=== PATIENT | male | born 1940 | race Caucasian/White ===

== ENCOUNTER → 2018-09-04 | Outpatient (CLI) | payer MEDICARE, BC ==
[~2018-09-04] MED LIST: ATOR40TA59 PO; IOHEXOL 180 MG/ML 10 ML VIAL. ONE; LISI-334 PO; MAGN400C PO; MELO15TA23 PO; methylPREDNISolone ACETATE 40 MG/ML VIAL. ONE; methylPREDNISolone ACETATE 80 MG/ML VIAL. ONE
--- NOTE | 2018-09-05 01:43 | PAIN ---
DATE OF SERVICE: 09/04/2018 INITIAL CONSULTATION FOR PAIN CLINIC CHIEF COMPLAINT: Low back and left lower extremity pain. HISTORY OF PRESENT ILLNESS: The patient is a 77-year-old male who presents with history of pain for about 3 months, not as a result of any specific injury or action he is aware of, but gradually increased in the low back, posterior gluteus, posterior thigh, posterior calf with some numbness and tingling in the toes, all on the left side and the left foot. The patient reports it has been getting worse with time. He has tried some physical therapy, he also done some chiropractic treatments, which is helpful, but not more than about 2 days. The patient reports the pain is throbbing, stabbing, worse when he coughs in the low back and leg intermittent in intensity, but radiating, becoming more severe and more noticeable. The patient rates his disability from 0-10, 10 being the worst at 2 with family and home responsibilities; 3 with social activity; 0 with recreation, occupation, sexual behavior, self-care and life support activities. The patient did have an MRI scan of the lumbar spine showing focal area of soft tissue signal in the left lateral recess at L5-S1 compatible with a focal disk protrusion measuring 7-8 mm in transverse diameter compressing the left S1 nerve root in the left lateral recess, a small left lateral disk protrusion at L3-L4 with moderate left lateral recess stenosis and compression of the left L4 nerve root. The patient reports no loss of motor function, but significant fatigability with the left lower extremity with walking, worse with sitting for prolonged periods, greater than 15-20 minutes, better with sitting or lying down. The patient reports it has been disturbing his sleep so frequently at least 2-3 times at night, does not affect his bowel or bladder control and does affect his ability to walk, but he is not using any assistive devices. The patient has tried Aleve as well as meloxicam, which helps sometimes, but not always. PAST MEDICAL HISTORY: Significant for arthritis, hypertension, hypercholesterolemia, previous TIAs, cataracts. PREVIOUS SURGERY: Include cataract extraction on the left and bilateral knee replacement in 2015 and 2018. CURRENT MEDICATIONS: Include meloxicam, lisinopril and atorvastatin. ALLERGIES: The patient has no known drug allergies. FAMILY HISTORY: Significant for no major medical problems or conditions he is aware of. SOCIAL HISTORY: The patient does not drink any alcohol; does not smoke; does not use any illegal, illicit or recreational drugs or other substances. He is retired, lives locally in [place], [place]. REVIEW OF SYSTEMS: The patient's review of systems is positive for those items mentioned in history of present illness. All systems are reviewed and otherwise negative. It is complete, full and well documented on the patient's chart. PHYSICAL EXAMINATION: VITAL SIGNS: The patient's blood pressure is 147/75, pulse 70, respirations are 18, temperature is 97.2 degrees Fahrenheit, height 5 feet 8 inches and weight is 213 pounds. GENERAL: The patient is awake, alert, oriented, appropriate, very pleasant demeanor. HEENT: Head shows normocephalic, atraumatic. Extraocular movements are intact and symmetrical. Oral cavity: Mucous membranes moist and pink. Dentition is intact. NECK: Shows anterior throat supple without palpable lymphadenopathy noted. Swallow reflux is symmetrical. CHEST: Shows normal on inspection. Breath sounds clear to auscultation bilaterally. HEART: Shows S1, S2 clear. No murmurs auscultated. ABDOMEN: Obese, soft, nontender, nondistended. No palpable organomegaly is noted. No rebound or guarding demonstrated. BACK: Shows spine grossly in the midline. Normal-appearing thoracic kyphosis, cervical lordotic curvature and lumbar lordotic curvature. Lumbar paraspinous muscle shows symmetrical on inspection; on palpation shows some moderate tenderness throughout the middle and lower distribution of paraspinous muscles, but only diffusely without significant radiation and only to a moderate extent. No tenderness over the spinous processes, sacrum or sacroiliac regions. The patient has good rotational motion of lumbar spine, both laterally greater than 10 degrees right and left as well as extension greater than 10 degrees, forward flexion 45 degrees without significant pain reported. EXTREMITIES: Lower extremities show deep tendon reflexes at 1+ patellar and tendo calcaneus tendons are equal. Motor exam is strong with 5/5 dorsiflexion, extension, quadriceps and hamstring flexion. Peripheral pulses are 1+ posterior tibial. No peripheral edema is noted bilaterally. Straight leg raise noted to be mildly positive on the left at about 40-45 degrees with decreased knee flexion, but right side is negative. Gaenslen's and Yobani's maneuvers are negative bilaterally. Lower extremities are warm and dry to touch, equal in color and appearance. Peripheral pulses are 1+ posterior tibia. No peripheral edema is noted bilaterally. SKIN: Warm, dry, good turgor. No edema. No sores, rashes or bruising. IMPRESSION: This is a 77-year-old male with: 1. Approximately 3-month history of increasing pain in the low back, left lower extremity in radicular fashion. 2. MRI scan of lumbar spine as noted. 3. Arthritis. 4. Hypertension. 5. Hypercholesterolemia. 6. History of transient ischemic attack. PLAN: Options were discussed with the patient and the patient's spouse who accompanied him at this visit today including conservative medical management, continued physical therapies, interventional techniques. He would like to pursue interventional techniques. We discussed a lumbar epidural steroid injection using description as well as anatomical models to describe the procedure. Risks were then discussed including, but not limited to bleeding, infection, possibility of epidural hematoma, subsequent neurological compromise, dural puncture, headaches, spinal cord and/or nerve damage, side effects of steroid medication and poor results regarding pain control. The patient understands and wished to proceed. The patient will return to clinic in approximately 2 weeks for followup. She was counseled as to return appointment, activity level and side effects to be aware of. DIAGNOSES: 1. Lumbar radiculopathy with lumbar degenerative disk disease. 2. Lumbar herniated disk. PROCEDURE: Lumbar epidural steroid injection, translaminar approach L5-S1 level using C-arm fluoroscopic guidance under sterile prep and drape using local anesthetic. MEDICATION INJECTED: A total of 120 mg Depo-Medrol plus 10 mL of preservative-free normal saline and 2 mL of Isovue for contrast. CONDITION AT DISCHARGE: Stable. The patient tolerated the procedure well, had no complications. STELLA SULTANA MD DR: KEL/meño JOB#: [id number] / [id number] SIDDHARTH Do MD
== END | disposition home or self-care (01) ==
LOC: PNCL 13:47
PROVIDERS: ATTEND Anesthesiology
DX: M51.16 Intervertebral disc disorders with radiculopathy, lumbar region (principal); I10 Essential (primary) hypertension; E78.00 Pure hypercholesterolemia, unspecified; Z86.73 Personal history of transient ischemic attack (TIA), and cerebral infarction without residual deficits; M19.90 Unspecified osteoarthritis, unspecified site; Z96.653 Presence of artificial knee joint, bilateral; Z98.42 Cataract extraction status, left eye; Z96.1 Presence of intraocular lens; Z79.899 Other long term (current) drug therapy
CPT/HCPCS: 62323; J1030; J1040; Q9965

== ENCOUNTER → 2018-09-25 | Outpatient (CLI) | payer MEDICARE, BC ==
--- NOTE | 2018-09-25 12:16 | PAIN ---
DATE OF SERVICE: 09/25/2018 PROGRESS NOTE FOR PAIN CLINIC DIAGNOSES: Lumbar radiculopathy with lumbar degenerative disk disease and lumbar herniated disk. HISTORY OF PRESENT ILLNESS: The patient is a 77-year-old male who returns for followup status post lumbar epidural steroid injection x 1. The patient reports he did very well with near 100% improvement for the first 3 weeks, now pain is returning but not to baseline in the low back, left lower extremity, posterior gluteus, posterior thigh, posterior calf and worse with walking, standing, change in positions but much better with increasing his activity with greater distance walking, greater activity at home, doing household activities and also traveling with much greater ease and comfort, sleeping better at night and does not awaken him from sleep. The patient reports he sleeps about 6-7 hours a night without difficulty from the pain. The patient rates his pain a 1 on a scale of 10 at its average, worst and at least and is a 1 today. The patient reports it is aching pain in the low back, left leg with some shooting pain as well on the left side. The patient reports no new motor or sensory deficits and no new bowel or bladder incontinence or other complaints. PHYSICAL EXAMINATION: VITAL SIGNS: The patient's blood pressure is 125/64, pulse 67, respirations 18 and temperature 97.4 degrees Fahrenheit. Height is 5 feet 8 inches and weight is 211 pounds. GENERAL: The patient is awake, alert, oriented, appropriate and very pleasant demeanor. HEENT: Head shows normocephalic and atraumatic. Extraocular movements are intact and symmetrical. Oral cavity: Mucous membranes moist and pink. Dentition is intact. NECK: Shows anterior throat supple without palpable lymphadenopathy noted. Swallow reflex symmetrical. CHEST: Shows normal on inspection. Breath sounds are clear to auscultation bilaterally. HEART: Shows S1 and S2 clear. No murmurs auscultated. ABDOMEN: Soft, nontender and nondistended. No palpable organomegaly is noted. No rebound or guarding demonstrated. BACK: Shows spine grossly in the midline. Normal appearing thoracic kyphosis and lumbar lordotic curvature. Lumbar paraspinous muscle shows symmetrical on inspection and palpation shows some moderate tenderness but only diffusely without significant radiation. The patient has good rotational motion of the lumbar spine, both laterally as well as extension and flexion without significant difficulty. EXTREMITIES: The patient's lower extremities show deep tendon reflexes at 1+ in the patellar and tendo-calcaneus tendons. Motor exam is strong with dorsiflexion, extension, quadriceps and hamstring flexion and symmetrical. Peripheral pulses are 1+ posterior tibial. No peripheral edema is noted bilaterally. Options were discussed with the patient. The patient's old chart was reviewed as well as his current medication regimen updated. Current review of systems updated today as well. We will proceed with a second in the series of lumbar epidural steroid injection today with fluoroscopic guidance. Risks were again discussed including, but not limited to bleeding, infection, possibility of epidural hematoma, subsequent neurological compromise, dural puncture, headaches, spinal cord and/or nerve damage, side effects of steroid medication and poor results regarding pain control. The patient understands and wished to proceed. The patient will return to the clinic in approximately 2 weeks for followup, was counseled as to return appointment, activity level and side effects to be aware of. DIAGNOSES: Lumbar radiculopathy with lumbar degenerative disk disease and lumbar herniated disk. PROCEDURE: Lumbar epidural steroid injection, translaminar approach at the L5-S1 level using C-arm fluoroscopic guidance under sterile prep and drape using local anesthetic. MEDICATION INJECTED: A total of 120 mg Depo-Medrol plus 10 mL of preservative-free normal saline and 2 mL of Isovue for contrast. CONDITION AT DISCHARGE: Stable. The patient tolerated the procedure well and had no complications. STELLA SULTANA MD DR: KEL/meño JOB#: [id number] / [id number]
== END | disposition home or self-care (01) ==
LOC: PNCL 08:06
PROVIDERS: ATTEND Anesthesiology
DX: M51.16 Intervertebral disc disorders with radiculopathy, lumbar region (principal); Z98.890 Other specified postprocedural states
CPT/HCPCS: 62323; J1030; J1040; Q9965

== ENCOUNTER → 2018-10-24 | Outpatient (CLI) | payer MEDICARE, BC ==
--- NOTE | 2018-10-24 21:00 | PAIN ---
DATE OF SERVICE: 10/24/2018 PROGRESS NOTE FOR PAIN CLINIC: DIAGNOSES: Lumbar radiculopathy with lumbar degenerative disk disease, lumbar herniated disk. HISTORY OF PRESENT ILLNESS: The patient is a 78-year-old male who returns for followup status post lumbar epidural steroid injection x 2. The patient reports initially did well for the first 3 weeks then the pain only reduced by about 20%. Prior to that, it was about 80-90% better, but the patient reports pain is returning in the low back, left leg, left posterior gluteus, posterior thigh, radiating to the posterior calf. The patient reports it is a dull aching pain radiating and shooting. The patient reports his pain on average is a 2 on a scale of 10 at its worst, least and average and is a 2 today, but it is becoming more difficult, increasing with some significant fatigability and difficulty walking with his left leg secondary to the pain and some weakness as well. The patient reports no new motor or sensory deficits, no new bowel or bladder incontinence, still significant pain with walking, standing, change in positions. Initially, he was walking greater distances, doing activities at home, traveling with greater ease and comfort, still sleeping better at night, is better with being off of his feet, but worse with standing and walking. The patient reports no new motor or sensory deficits, no bowel or bladder incontinence. PHYSICAL EXAMINATION: VITAL SIGNS: The patient's blood pressure is 122/32, pulse 73, respirations 18, temperature 97.6 degrees Fahrenheit, height is 5 feet 8 inches, weight is 212 pounds. GENERAL: The patient is awake, alert, oriented, appropriate, very pleasant demeanor. HEENT: Head shows normocephalic, atraumatic. Extraocular movements are intact and symmetrical. Oral cavity, mucous membranes are moist and pink. Dentition is intact. NECK: Shows anterior throat supple without palpable lymphadenopathy noted. Swallow reflex symmetrical. CHEST: Shows normal with inspection. Breath sounds clear to auscultation bilaterally. HEART: Shows S1, S2 clear. No murmurs auscultated. ABDOMEN: Soft, nontender, nondistended. No palpable organomegaly is noted. No rebound or guarding demonstrated. BACK: Shows spine grossly in the midline. Normal appearing thoracic kyphosis and lumbar lordotic curvature slightly flattened. Lumbar paraspinous muscle shows symmetrical on inspection, on palpation there is moderate tenderness bilaterally, but only diffusely without radiation. The patient has good rotational motion of lumbar spine, both laterally as well as extension and flexion without difficulty. EXTREMITIES: The patient's lower extremities show deep tendon reflexes at 1+ in the patellar and tendo calcaneus tendons. Motor exam is strong with 5/5 dorsiflexion, extension, quadriceps and hamstring flexion and symmetrical. Peripheral pulses are 1+ posterior tibia. No peripheral edema is noted bilaterally. Options were discussed with the patient. The patient's old chart was reviewed as his current medication regimen updated. Current review of systems updated today as well. We will proceed with a third in the series of lumbar epidural steroid injection today with fluoroscopic guidance. Risks were again discussed including, but not limited to bleeding, infection, possibility of epidural hematoma, subsequent neurological compromise, dural puncture headache, spinal cord and/or nerve damage, side effects of steroid medication and poor results regarding pain control. The patient understands and wished to proceed. The patient will return to clinic in approximately 2 weeks for followup, was counseled as to return appointment, activity level and side effects to be aware of. DIAGNOSES: Lumbar radiculopathy with lumbar degenerative disk disease, lumbar herniated disk. PROCEDURE: Lumbar epidural steroid injection, translaminar approach L5-S1 level using C-arm fluoroscopic guidance under sterile prep and drape using local anesthetic. MEDICATION INJECTED: A total of 120 mg Depo-Medrol plus 10 mL of preservative-free normal saline and 2 mL of Isovue for contrast. CONDITION AT DISCHARGE: Stable. The patient tolerated the procedure well and had no complications. STELLA SULTANA MD DR: KEL/meño JOB#: [id number] / [id number]
== END | disposition home or self-care (01) ==
LOC: PNCL 07:59
PROVIDERS: ATTEND Anesthesiology
DX: M51.16 Intervertebral disc disorders with radiculopathy, lumbar region (principal)
CPT/HCPCS: 62323; J1030; J1040; Q9965

== ENCOUNTER → 2019-01-13 | Outpatient (CLI) | payer MEDICARE, BC ==
[~2019-01-13] MED LIST changes: +DOCU-109 PO; +HYDR-3164 PO; -IOHEXOL 180 MG/ML 10 ML VIAL. ONE; +NAPR220T70 PO; -methylPREDNISolone ACETATE 40 MG/ML VIAL. ONE; -methylPREDNISolone ACETATE 80 MG/ML VIAL. ONE
[2019-01-13 15:26] LABS: BASO # 0.1 x10^3/uL (0.0-0.2); BASO % 1 % (0-3); EOS # 0.3 x10^3/uL (0.0-0.7); EOS % 4 % (0-3); HEMOGLOBIN 14.2 g/dL (13.0-17.5); LYMPH # 2.4 x10^3/uL (1.0-4.8); LYMPH % 29 % (24-48); MEAN CORPUSCULAR HEMOGLOBIN 32 pg (25-35); MEAN CORPUSCULAR HGB CONC 35 g/dL (31-37); MEAN CORPUSCULAR VOLUME 92 fL (79-100); MONO # 0.8 x10^3/uL (0.0-1.1); MONO % 10 % (0-9); NEUT # 4.8 x10^3uL (1.8-7.7); NEUT % 57 % (31-73); PLATELET COUNT 222 x10^3/uL (140-400); RED BLOOD COUNT 4.45 x10^6/uL (4.30-5.70); RED CELL DISTRIBUTION WIDTH 13.2 % (11.5-14.5); WHITE BLOOD COUNT 8.4 x10^3/uL (4.0-11.0)
--- NOTE | 2019-01-13 15:35 | EKG ---
[facility] [address] [place] [address] Test Date: 2019-01-13 Test Time: 15:20:51 Pat Name: TALHA ROBBINS Department: Room: Gender: M Commercial Sales Manager: : 1940 Requested By: KRISHAN TONY Order Number: [id number] Reading MD: Sekou Johnson MD Measurements Intervals [place] Rate: 71 P: 34 IN: 222 QRS: 28 QRSD: 98 T: 34 QT: 378 QTc: 415 Interpretive Statements SINUS RHYTHM PROLONGED IN INTERVAL POOR R-WAVE PROGRESSION, PROBABLE LEAD PLACEMENT Electronically Signed On 01-14-2019 11:32:10 CDT by Sekou Johnson MD
[2019-01-13 16:03] LABS: ALBUMIN 3.8 g/dL (3.4-5.0); CALCIUM 9.4 mg/dL (8.5-10.1); CREATININE 1.4 mg/dL (0.7-1.3); GFR 48.9; POTASSIUM 4.2 mmol/L (3.5-5.1); TOTAL BILIRUBIN 0.4 mg/dL (0.2-1.0); TOTAL PROTEIN 7.5 g/dL (6.4-8.2)
== END | disposition home or self-care (01) ==
LOC: SURGPAT 13:15
PROVIDERS: ATTEND Neurological Surgery
DX: Z01.818 Encounter for other preprocedural examination (principal); M51.17 Intervertebral disc disorders with radiculopathy, lumbosacral region; I44.0 Atrioventricular block, first degree
CPT/HCPCS: 36415; 80053; 85025; 87641; 93005

== ENCOUNTER 2019-01-17 08:15 | Day surgery (SDC) | payer MEDICARE, BC ==
--- NOTE | 2019-01-16 23:58 | HP ---
ADMIT DATE: 01/17/2019 Navarro Duran dictating for Dr. Lisandro Tony. HISTORY OF PRESENT ILLNESS: The patient is a pleasant 78-year-old who beginning 6 months ago while stretching developed a sharp, severe left buttock and posterior thigh pain. There is no numbness, tingling or weakness. The problem was significant back and left leg pain, which was disabling. He had epidural steroid injections and his pain currently has resolved. Sitting and standing would increase his pain. It was constant. He was taking meloxicam. PAST MEDICAL HISTORY: Right knee replacement in 2015. Left knee replacement in 2018. FAMILY HISTORY: Hypertension, heart disease. SOCIAL HISTORY: . Rarely exercises. Denies tobacco use. Drinks alcohol 1-2 times per month. Drinks coffee daily. Quit using and chewing tobacco about 5 years ago. ALLERGIES: No known drug allergies. CURRENT MEDICATIONS: Lisinopril, atorvastatin, and meloxicam. REVIEW OF SYSTEMS: A 12-point review of systems was obtained and is noncontributory except for that mentioned above. PHYSICAL EXAMINATION: NEUROSURGERY EXAMINATION: GENERAL APPEARANCE: Alert, pleasant, in no acute distress. HEAD: Normocephalic and atraumatic. SKIN: Warm and dry. MUSCULOSKELETAL: Lumbar paraspinal muscle bulk is normal, restricted range of motion of lumbar spine, [id number] tenderness of the lower lumbar spine with palpation, normal range of motion of the lower extremities bilaterally. EXTREMITIES: No clubbing, cyanosis or edema. NEUROLOGIC: Alert and oriented x 3. Normal recent and remote memory. Strength is 5/5 in bilateral lower extremities. Sensory was intact to light touch in bilateral lower extremities. Reflexes are present and symmetric in the lower extremities bilaterally. Positive straight leg raising on the left, relieved by Lasegue's maneuver. Negative straight leg raising on the right, normal gait. IMAGING: Reviewed. I reviewed a lumbar MRI scan. There are degenerative changes throughout. Pertinently at L5-S1 on the left, there is a focal disk herniation with lateral recess stenosis and compression left S1 nerve root. ASSESSMENT: Intervertebral disk disorders with radiculopathy, lumbosacral region. PLAN: I do feel the problem is a herniated disk on the left at L5-S1. For a small period of time, the pain had resolved; however, it has come back at this time and he would like to proceed with surgery. At this point, my recommendation is lumbar microsurgery at this level to remove disk fragment and see if this will help him. He understands. He would like to go ahead. We will make the arrangements. LISANDRO TONY MD DR: MICHAEL/meño JOB#: [id number] / [id number]
[~2019-01-17] VITALS: Ht 174 cm; Wt 98.4 kg
[~2019-01-17 08:15] MED LIST changes: +BACITRACIN 50,000 UNIT in IV NORMAL SALINE 1000ML BAG 1,000 ML IRR ONE; +BUPIVAC MPF-EPI 0.5%-1:200000 30 ML VIAL. ONE; -DOCU-109 PO; +GELATIN SPONGE SIZE 12-7MM SPONGE. ONE; -HYDR-3164 PO; +HYDROmorphone 2 MG/ML VIAL IV PRN; +IV RINGERS,LACTATED 1000ML 1,000 ML IV SCH; +KETOROLAC 60 MG/2 ML INJ FOR OR. ONE; +LIDOCAINE 1% PF 2 ML VIAL. ID PRN; +MORPHINE SULFATE 2 MG/ML VIAL. IV PRN; +ONDANSETRON PF 4 MG/2 ML VIAL. IV PRN; +PROCHLORPERAZINE 10 MG/2 ML VIAL. IV PRN; +THROMBIN TOPICAL 20,000 UNIT SPRAY.SYRN KIT TP ONE; +fentaNYL PF VIAL 100 MCG/2 ML VIAL IV PRN
[2019-01-17] MEDS ORDERED: ceFAZolin 2GM PREMIX 2 GM/50 ML BAG IV ONE (09:00)
[2019-01-17] MEDS ORDERED: REMIFENTANIL 2 MG VIAL. IV ONE (10:11)
[2019-01-17] MEDS ORDERED: ROCURONIUM 50 MG/5 ML VIAL. ONE (10:11)
[2019-01-17] MEDS ORDERED: fentaNYL PF VIAL 250 MCG/5 ML VIAL ONE (10:11)
[2019-01-17] MEDS ORDERED: ONDANSETRON PF 4 MG/2 ML VIAL. ONE (10:12)
[2019-01-17] MEDS ORDERED: LIDOCAINE 2% PF 5 ML VIAL. ONE (10:12)
[2019-01-17] MEDS ORDERED: PROPOFOL 20 ML IV ONE (10:12)
[2019-01-17] MEDS ORDERED: DEXAMETHASONE SOD PHOS 20 MG/5 ML VIAL. ONE (10:12)
[2019-01-17] MEDS ORDERED: PROPOFOL 50 ML IV ONE (10:12)
[2019-01-17] MEDS ORDERED: PHENYLEPHRINE 10 MG/ML VIAL. ONE ×2 (12:00)
[2019-01-17] MEDS ORDERED: NEOSTIGMINE METHYLSULFATE 5 MG/5 ML SYRINGE. ONE (12:32)
[2019-01-17] MEDS ORDERED: GLYCOPYRROLATE 1 MG/5 ML VIAL. ONE (12:33)
[2019-01-17] MEDS ORDERED: DESFLURANE > 120 MINUTES IH ONE (12:49)
[2019-01-17] MEDS ORDERED: DOCU-109 PO (12:53)
[2019-01-17] MEDS ORDERED: HYDR-3164 PO (12:53)
--- NOTE | 2019-01-17 12:55 | DISCH ---
DISCHARGE INSTRUCTIONS Condition on Discharge Condition on Discharge: Stable Activity After Discharge Activity Instructions for Disc: Activity as tolerated, Avoid exertion Other activity instructions: no driving for a week Bathing Instructions: Shower-keep dressing dry Lifting Instructions after Dis: No heavy lifting, No pulling or pushing, Do not lift >10 pounds Diet after Discharge Additional Diet Restrictions: resume home diet Wound Incision Care Wound/Incision Care: Ice to area for comfort Other wound/incision instructi: may remove dressing in 48 hours if dry then may shower, no soaking Contacting the after DC Call your doctor for: Concerns you may have Follow-Up Follow up with: Dr. Tony' s nurse in 2 weeks [phone] KRISHAN TONY MD Jan 17, 2019 12:55
[2019-01-17] MEDS ORDERED: HYDROcodone/APAP 5/325MG 1 TAB TABLET PO ONE (13:30)
[2019-01-17 14:12] VITALS: BP 136/67
--- NOTE | 2019-01-20 18:06 | PATHOLOGY ---
[facility] Accession Number: [id number] . 01 Material submitted: . vertebral column - LUMBAR DECOMPRESSION . 01 Clinical history: . Lumbar herniated disc and radiculopathy . 02 Diagnosis: Segments of fibrocartilaginous, adipose, and skeletal muscle tissue and bone, lumbar decompression and disc: - Degenerative changes of fibrocartilaginous tissue. (JPM:maris; 01/20/2019) QMS/01/20/2019 . 02 Comment: There is no evidence of an acute inflammatory process or malignancy. (JPM:maris; 01/20/2019) . 02 Electronically signed: . Tad Kaba MD, Pathologist NPI- [id number] . 01 Gross description: . Received in formalin labeled "Tad Hardin, lumbar decompression and disc," are several pieces of glistening, fibrous tissue measuring 3.7 x 2.0 x 1.5 cm in aggregate dimensions, containing small fragments of possible bone. The tissue is submitted representatively in cassette A1. (TSD; 01/17/2019) TOB/TOB . 02 Pathologist provided ICD-10: M51.36 . 02 CPT . 223855 Specimen Comment: A courtesy copy of this report has been sent to Specimen Comment: [phone], . Specimen Comment: Report sent to / DR MAZARIEGOS Performed at: 01 [facility] [address], [place] [id number] MD Gurpreet Valencia MD Phone: [phone] Performed at: 02 [facility] [address] [place], [place] [id number] MD Tad Kaba MD Phone: [phone]
--- NOTE | 2019-01-22 10:18 | OP ---
DATE OF SURGERY: 01/17/2019 PREOPERATIVE DIAGNOSES: Herniated nucleus pulposus, L5-S1 left with left lumbar radiculopathy. POSTOPERATIVE DIAGNOSES: Herniated nucleus pulposus, L5-S1 left with left lumbar radiculopathy. OPERATION PERFORMED: Hemilaminotomy and microdiskectomy, L5-S1, left. The operation was done with EMG monitoring, fluoroscopy, microscopic dissection. OPERATIVE INDICATION: The patient is a pleasant 78-year-old man who about 6 months ago developed back and left leg pain, which failed conservative measures. He did have a period where the pain resolved and I simply followed him but the pain returned and became significant and surgery was recommended. I spoke with him about the surgery, the risks, technique and expected postoperative course and he wished to go ahead. DESCRIPTION OF PROCEDURE: Following general endotracheal anesthesia, the patient was positioned prone on the Riley table. Lumbar region prepped and draped in standard fashion. VALERIE hose and AV impulse boots were applied for DVT prophylaxis. A microscope was draped. Fluoroscopy was draped in the field. Monitoring was established. Ancef 2 grams was given less than 1 hour prior to initiation of surgery. Using fluoroscopic guidance, a midline posterior incision was made over the L5-S1 interspace dissected down through skin and subcutaneous tissue, reflected the paraspinal muscles and placed the [place] micro disk retractor, I brought in the microscope and using high speed air drill, I burred down a generous hemilaminotomy. I then trimmed away thickened ligamentum flavum performing a partial foraminotomy. I gently retracted the root medially. There was disk bulging and focal inferior disk fragment and I teased and removed this material and fully decompressed the entire region. There was considerable scarring around the dura and nerve and I removed as much of this as I could to allow gentle mobilization of the root. I did enter the disk space, which was largely collapsed and removed disk from within the disk space to help prevent a recurrence. Following this, then I irrigated with copious antibiotic solution. I explored carefully, the root was quite free throughout its course. I did use small amounts of bone wax as well as a bipolar cautery for hemostasis. I irrigated and then I removed the retractor, obtained hemostasis in the muscle and I closed the wound in layers with absorbable suture and skin was closed with 4-0 subcuticular stitch. The operation went very well and the patient was taken to the recovery room in excellent condition. I was quite pleased with the surgery. KRISHAN TONY MD DR: MICHAEL/meño JOB#: [id number] / [id number]
== END 2019-01-17 14:57 | disposition home or self-care (01) ==
LOC: SURG 08:15
PROVIDERS: ATTEND Neurological Surgery
DX: M51.17 Intervertebral disc disorders with radiculopathy, lumbosacral region (principal); Z96.653 Presence of artificial knee joint, bilateral; Z72.89 Other problems related to lifestyle; Z87.891 Personal history of nicotine dependence
CPT/HCPCS: 63030; 76000; 88304; 88311; 97161; A7015; J0696; J1100; J1885; J2001; J2405; J2704; J2710; J3010; J3490; J7030; J7120

== ENCOUNTER → 2019-09-17 | Outpatient (CLI) | payer MEDICARE, BC ==
[~2019-09-17] MED LIST changes: -BACITRACIN 50,000 UNIT in IV NORMAL SALINE 1000ML BAG 1,000 ML IRR ONE; -BUPIVAC MPF-EPI 0.5%-1:200000 30 ML VIAL. ONE; +DOCU-109 PO; -GELATIN SPONGE SIZE 12-7MM SPONGE. ONE; +HYDR-3164 PO; -HYDROmorphone 2 MG/ML VIAL IV PRN; -IV RINGERS,LACTATED 1000ML 1,000 ML IV SCH; -KETOROLAC 60 MG/2 ML INJ FOR OR. ONE; -LIDOCAINE 1% PF 2 ML VIAL. ID PRN; -MORPHINE SULFATE 2 MG/ML VIAL. IV PRN; -ONDANSETRON PF 4 MG/2 ML VIAL. IV PRN; -PROCHLORPERAZINE 10 MG/2 ML VIAL. IV PRN; -THROMBIN TOPICAL 20,000 UNIT SPRAY.SYRN KIT TP ONE; -fentaNYL PF VIAL 100 MCG/2 ML VIAL IV PRN
--- NOTE | 2019-09-17 13:33 | RAD ---
CHEST PA LATERAL History: Chronic cough Comparison: None. Findings: Frontal and lateral views of the chest were obtained. The cardiomediastinal silhouette is normal. Pulmonary vasculature is normal. The lungs are clear. No pleural effusion or pneumothorax is seen. There is no acute bone abnormality. Multiple benign calcified lymph nodes are present especially about the right hilum. IMPRESSION: No acute cardiopulmonary process. Electronically signed by: Wayne Felix MD (09/17/2019 1:30 PM) [id number]
== END | disposition home or self-care (01) ==
LOC: RAD 10:07
PROVIDERS: ATTEND Family Medicine
DX: R05 Cough (principal)
CPT/HCPCS: 71046